=== PATIENT | female | born 1985 | race Caucasian/White ===

== ENCOUNTER 2022-04-27 13:33 | Outpatient (CLI) | payer OTHER ==
--- NOTE | 2022-04-27 16:36 | XRAY Report ---
PROCEDURE: Chest 2 View X-Ray INDICATIONS: CHEST PX TECHNIQUE: 2 views of the chest were obtained COMPARISON: None. FINDINGS: Frontal and lateral views of the chest obtained and shows the heart size, mediastinum and pulmonary v asculature to be normal. The lungs and pleural spaces are clear. Osseous structures are normal. IMPRESSION: Normal two-view chest x-ray Reviewed by: Gene Hubbard MD on 04/27/2022 3:35 PM [facility] Approved by: Gene Hubbard MD on 04/27/2022 3:35 PM [facility] Station ID: [id number]
== END 2022-04-27 23:59 | disposition home or self-care (01) ==
LOC: DI.N 13:33
PROVIDERS: ATTEND Nurse Practitioner
DX: R07.9 Chest pain, unspecified (principal)

== ENCOUNTER 2022-06-22 08:45 | Outpatient (CLI) | payer OTHER ==
[2022-06-22 14:09] VITALS: BP 102/60
--- NOTE | 2022-06-22 14:09 | SLEEP CARE CONSULTATION ---
Information from patient questionnaire entered by Vikki Urbina. I have reviewed and concur with the information entered by Vikki Urbina. This document represents the service I personally performed and the decisions made by me, Yanet Mejia ARNP. History of Present Illness Service Date and Time: 06/22/2022 0845 Reason for Visit: New patient Chief Complaint: reports: Unrefreshed sleep, Snoring, Excessive daytime sleepiness, Fatigue, Frequent awakenings at night Date of Onset: 3YRS Usual bedtime: 10PM Time it takes to fall asleep: 30MIN Snores at night: Yes Observed to quit breathing while asleep: No Sleeps alone due to snoring: No Number of times waking at night: 3+ Reasons for waking at night: reports: Gasping for air, Pain, Other (UNKNOWN REASONS; coughing) Toss, Turn, or Twitch while sleeping: Yes Recalls having dreams: No Usually gets out of bed at: 530AM Feels refreshed in the morning: No Morning headache: Yes (every morning; RESOLVES AROUND 10AM OR LATER) Sleepy or fatigued during the day: Yes Ever fallen asleep while driving: Yes (drowsy driving, no accidents) Takes day naps: No Prior sleep studies: No Additional HPI information: I had the pleasure of seeing WALKER MCKEON today regarding the possibility of her having a sleep disorder. Her current complaints are excessive daytime sleepiness, fatigue, frequent night awakenings, snoring and unrefreshed sleep. She states that she is always tired. She states she can sleep 5 hours or 8 hours and still feels very tired. She has gained about 60 pounds. She states she is also developed a cough since October that wakes her up at nighttime. The cough starts when she lays down and interrupts her ability to sleep well. She describes it as a dry cough, nonproductive. Patient does have a history of asthma but she states it is well controlled. She states she has a hard time having the motivation to do things at home. She states that if she sits down she has a hard time persuading herself to get moving again. Her has told her that she is "snoring too loud" and will occasionally have a pause in breathing at night. She states she has headache every morning. She does not take medication for this because she is getting injections for chronic neck and back pain. - Parasomnia Symptoms Ever been unable to move upon waking from sleep: No Walks in sleep: No Talks in sleep: Yes Ever acted out dreams in sleep: Yes Ever felt weak in the knees when startled or emotional: Yes Bothered by creepy, crawly, restless sensations in legs: Yes (all the time in legs; neha when really tired) Problems with memory or concentration: Yes (both; takes adderall but "still not good enough") Subjective Initial [place] Sleepiness Scale score: 20 (06/22/22) Past Medical History Past Medical History: reports: Anxiety, Asthma, Attention deficit, Other (chronic neck and back pain) Social History 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 Patient is and lives in [place]. Have you smoked in the past 12 months: No Alcohol use: No Caffeine use: Yes Caffeine amount and frequency: 8OZ DAILY Family History Family history of sleep disordered breathing: No Allergies and Home Medications Known drug allergies: No Drug allergies reviewed: Yes Home medication list reviewed: Yes Allergy and home medication list: Medications: Nortriptyline baclofen cetirizine montelukast Aripiprazole Adderall duloxetine Review of Systems Cardiovascular: reports: irregular heart rate or pulse, leg or foot swelling Respiratory: reports: shortness of breath, wheeze Gastrointestinal: reports: nausea, vomitting, abdominal pain Urinary: reports: urgency Neurological: reports: headaches Psychiatric: reports: Attention Deficit Hyperactivity, anxiety, mood disorder Ear/Nose/Throat: reports: nose bleeds, dry mouth/throat Endocrine: reports: too hot or cold, excessive thirst Musculoskeletal: reports: joint pain, neck pain, back pain, joint swelling, muscle pain or cramping Immunologic: reports: itching Physical Exam Vital signs obtained and entered by: VIKKI Shirley MA Blood Pressure: 102/60 (LEFT ARM) Cuff size: regular Heart Rate: 91 O2 Saturation: 96 Height: 5 ft 3 in Weight: 178 lb 6.4 oz Body Mass Index: 31.6 BMI Classification: Obese Neck circumference: 14 Mouth and throat: narrow oropharynx Soft palate: long Hard palate: normal Uvula: normal Uvula visualization: 25% Mallampati Class III Tongue: enlarged in size with teeth prabhakar on lateral edges Tonsils: small Neck: normal w/o lymphadenopathy or thyromegaly Heart: regular rate and rhythm Lungs: clear bilaterally Impression and Plan 1. Suspected Obstructive Sleep Apnea-Hypopnea Syndrome, as suggested by a history of loud and irregular snoring, observed cessation of breath while asleep, morning headache, frequent awakening during the night, unrefreshed sleep, cognitive impairment, and excessive daytime sleepiness. Narrow oropharynx and obesity are common predisposing factors for obstructive sleep apnea-hypopnea syndrome. I recommend proceeding to polysomnography to confirm the diagnosis and to assess severity. If the patient has significant sleep disordered breathing, a manual CPAP titration study will also be performed to find the optimal treatment pressure. I informed the patient of what the sleep studies involve and after some discussion, obtained agreement to proceed. The pathophysiology of obstructive sleep apnea-hypopnea syndrome was discussed with the patient and health risks of cardiovascular and cerebrovascular disease if not treated. Risks of drowsy driving discussed in detail and patient advised to avoid long distance driving and to hide puller at the first sign of drowsiness. Patient agreed to plan. * Schedule polysomnography * Avoid long distance driving or driving when feeling sleepy. * Avoid alcohol, sedative and muscle relaxant around bedtime. * Attempt to lose weight. * Review instructions provided by trained office staff on how to prepare for the sleep study. * Return for follow-up after sleep study completed. Counseling Topics: Weight loss health impact Visit Type: In Office Time Spent with Patient (minutes): 34 Provider Statement: I spent 100% of the Face to Face Visit with the patient with greater than 50% spent counseling the patient and coordination of care.
== END 2022-06-22 08:46 | disposition home or self-care (01) ==
LOC: SC 08:45
PROVIDERS: ATTEND Nurse Practitioner Family
DX: R06.83 Snoring (principal); G47.8 Other sleep disorders; R06.81 Apnea, not elsewhere classified; R51.9 Headache, unspecified; G47.10 Hypersomnia, unspecified; R53.83 Other fatigue; E66.9 Obesity, unspecified; Z68.31 Body mass index [BMI] 31.0-31.9, adult
CPT/HCPCS: 99203; 99212

== ENCOUNTER 2022-07-13 20:31 | Outpatient (CLI) | payer OTHER | END 2022-07-13 20:32 | disposition home or self-care (01) | LOC: SC 20:31 | PROVIDERS: ATTEND Nurse Practitioner Family | DX: R06.83 Snoring (principal); R06.81 Apnea, not elsewhere classified; R51.9 Headache, unspecified; R53.83 Other fatigue; G47.8 Other sleep disorders; G47.10 Hypersomnia, unspecified; F81.9 Developmental disorder of scholastic skills, unspecified | CPT/HCPCS: 95810 ==

== ENCOUNTER 2022-08-05 14:51 | Outpatient (CLI) | payer OTHER ==
[2022-08-05 15:13] VITALS: BP 124/72
--- NOTE | 2022-08-05 15:13 | SLEEP CARE CONSULTATION ---
Information from patient questionnaire entered by Vikki Urbina. I have reviewed and concur with the information entered by Vikki Urbina. This document represents the service I personally performed and the decisions made by , Yanet Mejia ARNP. History of Present Illness Service Date and Time: 08/05/2022 145 Initial [place] Sleepiness Scale score: 20 (06/22/22) Current [place] Sleepiness Scale score: 20 (08/05/22) Additional HPI information: WALKER MCKEON returns for follow up and results of the recently performed polysomnography. The patient was informed of the following findings: No significant sleep disordered breathing with an average AHI of 0.6 and [place] oxygen saturation of 93%. I explained the pathophysiology behind obstructive sleep apnea. Patient does not have sleep apnea and was advised how weight gain could increase the risk of developing sleep apnea in the future. I strongly encouraged the patient to lose weight. Patient has light snoring. Snoring can be reduced by weight loss. Weight loss is best achieved with diet consult. Patient instructed to contact PCP for referral. Snoring can also be treated with an oral appliance from a dentist. Advised to check insurance coverage. In addition, an ENT evaluation can be do to see if other treatment is indicated. Patient was cautioned about risks of drowsy driving until sleepiness symptoms resolve. Sleep Study - Results Type of Sleep Study: Polysomnography (COMPLETED 07/13/22) Prior sleep studies: No Polysomnography/Home Sleep Study results: IMPRESSION: The quality of the study is good. The patient had normal sleep efficiency. The sleep architecture was normal as well. Respiratory monitoring showed no significant sleep disordered breathing (AHI = 0.6) or hypoxia ([place] oxygen saturation of 93%). The patient slept adequately in supine position (supine AHI = 2.2; nonsupine = 0.32). Snore was infrequent and light in intensity. There was no significant periodic leg movement of sleep. Cardiac rhythm was normal sinus rhythm without significant arrhythmia. No abnormal behavior (parasomnia) observed during the night. Allergies and Home Medications Drug allergies reviewed: Yes (NKDA) Home medication list reviewed: Yes (no changes) Review of Systems Review of systems same as previous: Yes (no changes) Physical Exam Vital signs obtained and entered by: VIKKI Shirley MA Blood Pressure: 124/72 (LEFT ARM) Cuff size: regular Heart Rate: 117 O2 Saturation: 98 Height: 5 ft 3 in Weight: 180 lb 6.4 oz Body Mass Index: 31.9 BMI Classification: Obese Impression and Plan Snoring but no significant sleep disordered breathing. Patient advised that often weight loss will reduce snoring as well as apnea risk. An oral appliance can also be used for snoring. This would require a dental consultation. Patient cautioned not to use other online appliances as can cause bite issues. A list of accredited dentists in [facility] and one local dentist who makes oral appliances is available in office. Patient is advised to check if insurance will cover. An ENT consult can also be helpful to determine if any other treatment is an option. * Attempt to lose weight * Avoid alcohol consumption near bedtime * The patient is cautioned about driving until sleepiness is completely resolved. * Return as needed for follow up. Counseling Topics: Weight loss health impact Visit Type: In Office Time Spent with Patient (minutes): 10 Provider Statement: I spent 100% of the Face to Face Visit with the patient with greater than 50% spent counseling the patient and coordination of care.
== END 2022-08-05 14:52 | disposition home or self-care (01) ==
LOC: SC 14:51
PROVIDERS: ATTEND Nurse Practitioner Family
DX: R06.83 Snoring (principal); E66.9 Obesity, unspecified; Z68.31 Body mass index [BMI] 31.0-31.9, adult
CPT/HCPCS: 99212